=== PATIENT | male | born 1985 | race Caucasian/White ===

== ENCOUNTER 2022-06-11 09:13 | Emergency (ER) | payer OTHER ==
[~2022-06-11] VITALS: Ht 188 cm; Wt 136.1 kg
[2022-06-11] MEDS ORDERED: Morphine 4mg INJECTION 4 MG/ML INJ IV STA (09:40)
[2022-06-11] MEDS ORDERED: ONDANSETRON HCL INJ 2MG/ML 2ML 2 MG/ML VIAL IV STA (09:40)
[2022-06-11] MEDS ORDERED: SODIUM CHLORIDE 0.9% 1000ML 1,000 ML IV STA (09:40)
[2022-06-11] MEDS ORDERED: KETOROLAC TROMETHAMINE 30 MG/ML VIAL IV STA (09:40)
[2022-06-11 10:03] LABS: BASOPHILS % 0.4 % (0.0-1.0); EOSINOPHILS # (AUTO) 0.1 (0.0-0.4); EOSINOPHILS % 0.9 % (0.0-6.0); HEMATOCRIT 46.3 % (38.2-49.6); HEMOGLOBIN 15.6 g/dL (14.0-18.0); LYMPHOCYTES # (AUTO) 3.5 (1.0-3.2); LYMPHOCYTES % 38.1 % (18.0-39.1); MEAN CORPUSCULAR HEMOGLOBIN 30.3 pg (28-32); MEAN CORPUSCULAR HGB CONC 33.7 g/dL (31-35); MEAN CORPUSCULAR VOLUME 89.9 fL (81-99); MONOCYTES # (AUTO) 0.6 (0.2-0.8); MONOCYTES % 6.2 % (4.4-11.3); NEUTROPHILS # (AUTO) 4.9 (2.1-6.9); PLATELET COUNT 249 x10e3/uL (140-360); RED BLOOD COUNT 5.15 x10e6/uL (4.3-5.7)
[2022-06-11 10:20] LABS: CLARITY,URINE CLEAR (CLEAR); COLOR,URINE YELLOW (YELLOW); KETONES,URINE 1+ (NEGATIVE); LEUKOCYTE ESTERASE ,URINE NEGATIVE (NEGATIVE); NITRITE,URINE NEGATIVE (NEGATIVE); PROTEIN,URINE DIPSTICK 1+ (NEGATIVE)
[2022-06-11 10:21] LABS: BACTERIA,URINE MODERATE /HPF; EPITHELIAL CELLS,URINE FEW /LPF; URINE UROBILINOGEN 0.2 mg/dL (0.2 - 1); WBC,URINE (MAN) 0-5 /HPF (0-5)
[2022-06-11 10:31] LABS: ALBUMIN 4.1 g/dL (3.5-5.0); ALBUMIN/GLOBULIN RATIO 1.4 (0.8-2.0); ANION GAP 16.1 mmol/L (8-16); CALCIUM 9.3 mg/dL (8.4-10.2); CREATININE, SERUM 1.11 mg/dL (0.72-1.25); POTASSIUM 4.1 mmol/L (3.5-5.1)
[2022-06-11] MEDS ORDERED: HYDROMORPHONE 1MG/1ML INJ IV STA (11:30)
[2022-06-11] MEDS ORDERED: SODIUM CHLORIDE 0.9% 1000ML 1,000 ML IV SCH (11:30)
[2022-06-11] MEDS ORDERED: TETANUS/DIPHTHERIA TOX ADULT 0.5 ML SYR IM ONE (11:30)
[2022-06-11] MEDS ORDERED: HYDROMORPHONE 1MG/1ML INJ ONE (11:33)
[2022-06-11] MEDS ORDERED: TETANUS/DIPHTHERIA TOX ADULT 0.5 ML SYR ONE (11:33)
[2022-06-11] MEDS ORDERED: HYDROCODON-ACE1 EA12 PO (12:51)
[2022-06-11] MEDS ORDERED: ONDANSETRON ODT4 MG PO (12:51)
[2022-06-11] MEDS ORDERED: IBUPROFEN600 MG PO (12:51)
[2022-06-11] MEDS ORDERED: FLOMAX0.4 MG PO (12:51)
== END 2022-06-11 13:08 | disposition home or self-care (01) ==
LOC: ER 09:17
DX: M54.50 Low back pain, unspecified (principal); N20.2 Calculus of kidney with calculus of ureter; R10.31 Right lower quadrant pain
CPT/HCPCS: 36415; 74176; 80053; 81001; 85025; 90471; 90714; 99284; J1170; J1885; J2270; J2405; J7030